=== PATIENT | male | born 1940 | race Caucasian/White ===

== ENCOUNTER 2016-08-10 09:56 | Inpatient (IN) | payer MEDICARE, OTHER ==
[~2016-08-10] VITALS: Ht 172.7 cm; Wt 85.2 kg
[~2016-08-10 09:56] MED LIST: HYDR-3580 PO; IBUP-232 PO
[2016-08-10 10:05] VITALS: BP 154/85; PULSE 65; RESP 16; TEMP 98; O2SAT 96
[2016-08-10] MEDS ORDERED: ASPI81CH37 CHEW (10:24)
[2016-08-10] MEDS ORDERED: BP med PO (10:24)
[2016-08-10] MEDS ORDERED: SIMV5TAB3 PO (10:24)
[2016-08-10] MEDS ORDERED: CLIN1CAP6 PO (10:24)
[2016-08-10] MEDS ORDERED: MUPI2OIN TOPICAL (10:24)
[2016-08-10] MEDS ORDERED: TETANUS/DIPHTHERIA TOXOID ADULT 0.5 ML VIAL IM ONE (10:30)
[2016-08-10] MEDS ORDERED: VANCOMYCIN INJ 1,251 MG in SODIUM CHLORID 0.9% 500 ML INJ 500 ML IV SCH (10:30)
--- NOTE | 2016-08-10 10:31 | PD ---
HPI Chief Complaint: Skin Problem Time Seen by Provider: 10:15 Travel History International Travel<30 days: No Contact w/Intl Traveler<30days: No Traveled to known affect area: No History of Present Illness HPI Patient is a 76-year-old male who presents to emergency room for evaluation of cellulitis to his right upper extremity with failed outpatient treatment. Patient reports that one week ago, he "snagged his right arm on a door hook," reports that he noticed a small tear in the skin at that time, reports that he noticed increased erythema and edema to his arm days after initial injury. Patient reports that he went to the urgent care on Saturday and was started and doxycycline and was given a prescription for mupirocin ointment. Patient reports that he had been compliant with his medications but reports that the redness has progressed up his arm. Patient went to his primary care doctor yesterday, Dr. Dolan, and his antibiotics were changed to clindamycin. Patient reports that he has been taking clindamycin since yesterday, he was told to go to the emergency room if his redness increased and did not improve with his clindamycin. Patient reports that he has noticed increased redness up his arm today, patient here for evaluation of worsening cellulitis. Patient reports no fevers or chills at this time. Patient reports that his tetanus is not up-to-date. PFSH Past Medical History Hx Anticoagulant Therapy: Yes (asa 81mg) Heart Rhythm Problems: Yes Cardiovascular Problems: Yes (htn on meds, 3 vessel bypass) High Cholesterol: Yes Diabetes: No Diminished Hearing: No Hypertension: Yes Respiratory: Yes (copd) Thyroid Disease: Yes Tetanus Vaccination: Unknown Influenza Vaccination: No Past Surgical History Appendectomy: Yes Cardiac Surgery: Yes Coronary Artery Bypass Graft: Yes Tonsillectomy: Yes Social History Alcohol Use: Yes (Occ.) Tobacco Use: No Substance Use: No Allergies-Medications (Allergen,Severity, Reaction): Coded Allergies: Contrast Media (Verified Allergy, Unknown, stings , 08/10/16) Reported Meds & Prescriptions Reported Meds & Active Scripts Active Reported Metoprolol Tartrate 25 Mg Tab 25 Mg PO DAILY Mupirocin Topical (Mupirocin) 2 % Oint 1 Applic TOPICAL TID Clindamycin (Clindamycin HCl) 300 Mg Cap 300 Mg PO Q6H Aspirin Low Dose (Aspirin) 81 Mg Chew 81 Mg CHEW DAILY Simvastatin 5 Mg Tab 10 Mg PO DAILY Review of Systems General / Constitutional: No: Fever Eyes: No: Visual changes HENT: No: Headaches Cardiovascular: No: Chest Pain or Discomfort Respiratory: No: Shortness of Breath Gastrointestinal: No: Abdominal Pain Genitourinary: No: Dysuria Musculoskeletal: No: Pain Skin: Positive Rash, Positive Other (cellulitis to right upper extremity) Neurologic: No: Weakness Psychiatric: No: Depression Endocrine: No: Polydipsia Hematologic/Lymphatic: No: Easy Bruising Physical Exam Narrative GENERAL: No acute distress, nontoxic SKIN: Warm and dry. Patient with increased redness and erythema to his right upper extremity HEAD: Atraumatic. Normocephalic. EYES: No injection or drainage. ENT: No nasal bleeding or discharge. Mucous membranes pink and moist. NECK: Trachea midline. No JVD. CARDIOVASCULAR: Regular rate and rhythm. No murmur appreciated. RESPIRATORY: No accessory muscle use. Clear to auscultation. Breath sounds equal bilaterally. GASTROINTESTINAL: Abdomen soft, non-tender, nondistended. Hepatic and splenic margins not palpable. MUSCULOSKELETAL: No obvious deformities. No clubbing. No cyanosis. Patient with increased redness and erythema to his right upper extremity from his right wrist to his shoulder, erythema and redness is not circumferential, no obvious abscess palpable NEUROLOGICAL: Awake and alert. No obvious cranial nerve deficits. Motor grossly within normal limits. Normal speech. PSYCHIATRIC: Appropriate mood and affect; insight and judgment normal. Data Data Last Documented VS Vital Signs Date Time Temp Pulse Resp B/P Pulse Ox O2 Delivery O2 Flow Rate FiO2 08/10/16 10:05 98.0 65 16 154/85 96 Orders Complete Blood Count With Diff (08/10/16 10:20) Comprehensive Metabolic Panel (08/10/16 10:20) Prothrombin Time / Inr (Pt) (08/10/16 10:20) Act Partial Throm Time (Ptt) (08/10/16 10:20) Blood Culture (08/10/16 10:20) Iv Access Insert/Monitor (08/10/16 10:20) Tetanus/Diphtheria Tox Adult (Tetanus/Di (08/10/16 10:30) Vancomycin Inj (Vancomycin Inj) (08/10/16 11:00) Labs Laboratory Tests Test 08/10/16 10:30 White Blood Count 5.4 TH/MM3 Red Blood Count 5.25 MIL/MM3 Hemoglobin 15.4 GM/DL Hematocrit 48.0 % Mean Corpuscular Volume 91.5 FL Mean Corpuscular Hemoglobin 29.3 PG Mean Corpuscular Hemoglobin 32.1 % Concent Red Cell Distribution Width 14.1 % Platelet Count 220 TH/MM3 Mean Platelet Volume 7.5 FL Neutrophils (%) (Auto) 64.2 % Lymphocytes (%) (Auto) 20.9 % Monocytes (%) (Auto) 9.3 % Eosinophils (%) (Auto) 4.1 % Basophils (%) (Auto) 1.5 % Neutrophils # (Auto) 3.5 TH/MM3 Lymphocytes # (Auto) 1.1 TH/MM3 Monocytes # (Auto) 0.5 TH/MM3 Eosinophils # (Auto) 0.2 TH/MM3 Basophils # (Auto) 0.1 TH/MM3 CBC Comment DIFF FINAL Differential Comment Prothrombin Time 11.4 SEC Prothromb Time International 1.0 RATIO Ratio Activated Partial 27.6 SEC Thromboplast Time Sodium Level 139 MEQ/L Potassium Level 4.3 MEQ/L Chloride Level 102 MEQ/L Carbon Dioxide Level 29.2 MEQ/L Anion Gap 8 MEQ/L Blood Urea Nitrogen 18 MG/DL Creatinine 1.10 MG/DL Estimat Glomerular Filtration 65 ML/MIN Rate Random Glucose 111 MG/DL Calcium Level 8.7 MG/DL Total Bilirubin 0.8 MG/DL Aspartate Amino Transf 15 U/L (AST/SGOT) Alanine Aminotransferase 32 U/L (ALT/SGPT) Alkaline Phosphatase 32 U/L Total Protein 6.8 GM/DL Albumin 3.9 GM/DL [facility] Medical Decision Making Medical Screen Exam Complete: Yes Emergency Medical Condition: Yes Interpretation(s) Vital Signs Date Time Temp Pulse Resp B/P Pulse Ox O2 Delivery O2 Flow Rate FiO2 08/10/16 10:05 98.0 65 16 154/85 96 Differential Diagnosis Cellulitis - failed outpatient treatment Narrative Course Patient is a 76-year-old male who presents to emergency room with complaints of cellulitis which started around 1 week ago after he injured his right arm on a metal door. Patient has been on doxycycline for the past 5 days, reports that symptoms progressed on antibiotics. Patient did follow with his primary care doctor yesterday and was started on clindamycin and was told to go to the emergency room should symptoms progress or worsen and not improve on clindamycin. Patient reports that symptoms are worse today, patient here for evaluation. Vital Signs Date Time Temp Pulse Resp B/P Pulse Ox O2 Delivery O2 Flow Rate FiO2 08/10/16 10:05 98.0 65 16 154/85 96 Patient's vital signs are stable this time, patient with cellulitis to his right upper extremity, patient failed outpatient treatment for his cellulitis. Labs as well as blood cultures ordered. We'll give patient an IV dose of vancomycin. Patient will require admission to the hospital for treatment of cellulitis. Will update patient's tetanus at this time. Patient pcp Dr. Whittaker ( hospitalist) CBC & BMP Diagram 08/10/16 10:30 Physician Communication Physician Communication case reviewed with dr. mcgowan who accepts pt to service Diagnosis Primary Impression: Cellulitis Qualified Code: L03.113 - Cellulitis of right upper extremity Admitting Information Admitting Physician Requests: Admit Neelima Edwards DO Aug 10, 2016 10:31
[2016-08-10 10:51] LABS: AUTOMATED NEUTROPHIL # 3.5 TH/MM3 (1.8-7.7); BASOPHIL # 0.1 TH/MM3 (0-0.2); BASOPHIL % 1.5 % (0.0-2.0); EOSINOPHIL # 0.2 TH/MM3 (0-0.4); EOSINOPHIL % 4.1 % (0.0-4.0); HEMO FLAGS DIFF FINAL; LYMPH % 20.9 % (9.0-44.0); LYMPHOCYTE # 1.1 TH/MM3 (1.0-4.8); MEAN CELL VOLUME 91.5 FL (80.0-100.0); MEAN CORPUSCULAR HEMOGLOBIN 29.3 PG (27.0-34.0); MEAN CORPUSCULAR HGB CONC 32.1 % (32.0-36.0); MONO % 9.3 % (0.0-8.0); NEUT % 64.2 % (16.0-70.0); PLATELET COUNT 220 TH/MM3 (150-450); RED BLOOD COUNT 5.25 MIL/MM3 (4.50-5.90); RED CELL DISTRIBUTION WIDTH 14.1 % (11.6-17.2); WHITE BLOOD COUNT 5.4 TH/MM3 (4.0-11.0)
[2016-08-10 10:58] LABS: CHLORIDE 102 MEQ/L (98-107); POTASSIUM 4.3 MEQ/L (3.5-5.1); SODIUM (NA) 139 MEQ/L (136-145)
[2016-08-10] MEDS ORDERED: METO25TA3 PO (10:59)
[2016-08-10] MEDS ORDERED: VANCOMYCIN INJ 1,250 MG in SODIUM CHLOR 0.9% 250 ML INJ 250 ML IV SCH (11:00)
[2016-08-10 11:03] LABS: ANION GAP 8 MEQ/L (5-15); BICARBONATE 29.2 MEQ/L (21.0-32.0); BLOOD UREA NITROGEN 18 MG/DL (7-18)
[2016-08-10 11:06] LABS: ALT (GPT) 32 U/L (12-78); AST (GOT) 15 U/L (15-37)
[2016-08-10 11:07] LABS: GLOMERULAR FILTRATION RATE 65 ML/MIN (>89)
[2016-08-10 11:08] LABS: TOTAL BILIRUBIN ADULT 0.8 MG/DL (0.2-1.0)
[2016-08-10 11:09] LABS: ALKALINE PHOSPHATASE 32 U/L (45-117); APTT (PATIENT) 27.6 SEC (24.3-30.1); PROTHROMBIN TIME - PATIENT 11.4 SEC (9.8-11.6)
[2016-08-10] MEDS ORDERED: NALOXONE HCL 0.4 MG/ML AMP IV PRN (11:45)
[2016-08-10] MEDS ORDERED: ONDANSETRON HCL 4 MG/2 ML VIAL IVP PRN (11:45)
[2016-08-10] MEDS ORDERED: TEMAZEPAM 15 MG CAP PO PRN (11:45)
[2016-08-10 11:55] VITALS: BP 136/66; PULSE 45; RESP 16; O2SAT 98
[2016-08-10] MEDS: MUPIROCIN 2% OINT 22 GM TUBE TOPICAL SCH ×2 (12:11→18:00)
[2016-08-10] MEDS: HEPARIN SODIUM - SQ 10,000 UNITS/ML VIAL SQ SCH ×2 (12:11→21:59)
[2016-08-10 13:45] VITALS: BP 151/67; PULSE 42; RESP 16; O2SAT 98
[2016-08-10] MEDS: CLINDAMYCIN INJ 600 MG in SODIUM CHLORIDE 0.9% INJ 100 ML IV SCH ×2 (14:00→21:59)
--- NOTE | 2016-08-10 14:06 | HHI.HP ---
HPI Service [facility] Primary Care Physician Jacob Whittaker MD Admission Diagnosis Right upper extremity Cellulitis - failed outpatient treatment Diagnoses: Travel History International Travel<30 Days: No Contact w/Intl Traveler <30 Da: No Traveled to Known Affected Are: No History of Present Illness This is a very pleasant 76-year-old male patient of Dr. Whittaker. He was brought in to the emergency department at [facility] and was seen by the undersigned in room 9. One week ago he had his right forearm hitting doorknob. He sustained a skin tear over the outer aspect of his right forearm. This became red and therefore he went to urgent care where he received a prescription for doxycycline. Also he received a prescription for mupirocin. He used the above without much improvement. He saw his primary physician yesterday and was given a prescription for clindamycin. Again there was no improvement subsequently and the redness has not spread to the whole of the dorsal aspect of his right forearm and up his right upper arm. No fever chills or diaphoresis. He is alert and oriented. He has some pain on the pain is mild. He does have some minor swelling in the arm. He has no problems with movement and sensation in his right hand. He is right handed. He was seen in presence of his . Review of Systems Other As above. Itching right upper extremity, 10 systems reviewed and otherwise negative Past Family Social History Past Medical History Hypothyroidism Coronary disease Hyperlipidemia Overweight Hypertension COPD Past Surgical History 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 Tonsillectomy Appendectomy Reported Medications Reported Meds & Active Scripts Active Reported Metoprolol Tartrate 25 Mg Tab 25 Mg PO DAILY Mupirocin Topical (Mupirocin) 2 % Oint 1 Applic TOPICAL TID Clindamycin (Clindamycin HCl) 300 Mg Cap 300 Mg PO Q6H Aspirin Low Dose (Aspirin) 81 Mg Chew 81 Mg CHEW DAILY Simvastatin 5 Mg Tab 10 Mg PO DAILY Allergies: Coded Allergies: Contrast Media (Verified Allergy, Unknown, stings , 08/10/16) Family History Reviewed with noncontributory Social History No current smoking, no excessive alcohol, no illicit drug use Physical Exam Vital Signs Vital Signs Date Time Temp Pulse Resp B/P Pulse Ox O2 Delivery O2 Flow Rate FiO2 08/10/16 13:45 42 16 151/67 98 Room Air 08/10/16 11:55 45 16 136/66 98 Room Air 08/10/16 10:05 98.0 65 16 154/85 96 Physical Exam GENERAL: This is a well-nourished, well-developed patient, in no apparent distress. SKIN: No rashes, ecchymoses or lesions. Cool and dry. HEAD: Atraumatic. Normocephalic. No temporal or scalp tenderness. EYES: Pupils equal round and reactive. Extraocular motions intact. No scleral icterus. No injection or drainage. ENT: Nose without bleeding, purulent drainage or septal hematoma. Throat without erythema, tonsillar hypertrophy or exudate. Uvula midline. Airway patent. NECK: Trachea midline. No JVD or lymphadenopathy. Supple, nontender, no meningeal signs. CARDIOVASCULAR: Regular rate and rhythm without murmurs, gallops, or rubs. RESPIRATORY: Clear to auscultation. Breath sounds equal bilaterally. No wheezes , rales, or rhonchi. GASTROINTESTINAL: Abdomen soft, non-tender, nondistended. No hepato-splenomegaly , or palpable masses. No guarding. MUSCULOSKELETAL: Skin tear of the lateral aspect of the right forearm erythema extending from the area proximal to the right wrist all the way to the mid upper arm with sharp edges. He has good radial pulse. He has normal sensation and normal motor power in his right hand NEUROLOGICAL: Awake and alert. Cranial nerves II through XII intact. Normal speech. Laboratory Laboratory Tests Test 08/10/16 10:30 White Blood Count 5.4 Red Blood Count 5.25 Hemoglobin 15.4 Hematocrit 48.0 Mean Corpuscular Volume 91.5 Mean Corpuscular Hemoglobin 29.3 Mean Corpuscular Hemoglobin 32.1 Concent Red Cell Distribution Width 14.1 Platelet Count 220 Mean Platelet Volume 7.5 Neutrophils (%) (Auto) 64.2 Lymphocytes (%) (Auto) 20.9 Monocytes (%) (Auto) 9.3 Eosinophils (%) (Auto) 4.1 Basophils (%) (Auto) 1.5 Neutrophils # (Auto) 3.5 Lymphocytes # (Auto) 1.1 Monocytes # (Auto) 0.5 Eosinophils # (Auto) 0.2 Basophils # (Auto) 0.1 CBC Comment DIFF FINAL Differential Comment Prothrombin Time 11.4 Prothromb Time International 1.0 Ratio Activated Partial 27.6 Thromboplast Time Sodium Level 139 Potassium Level 4.3 Chloride Level 102 Carbon Dioxide Level 29.2 Anion Gap 8 Blood Urea Nitrogen 18 Creatinine 1.10 Estimat Glomerular Filtration 65 Rate Random Glucose 111 Calcium Level 8.7 Total Bilirubin 0.8 Aspartate Amino Transf 15 (AST/SGOT) Alanine Aminotransferase 32 (ALT/SGPT) Alkaline Phosphatase 32 Total Protein 6.8 Albumin 3.9 Date/Time Procedure Status Source Growth 08/10/16 10:35 Aerobic Blood Culture Received Blood Peripheral Pending 08/10/16 10:35 Anaerobic Blood Culture Received Blood Peripheral Pending Result Diagram: 08/10/16 1030 08/10/16 1030 Assessment and Plan Assessment and Plan Assessment Right upper extremity skin tear Right upper extremity cellulitis, resistant to outpatient therapy Pruritus secondary to the above History of coronary disease, COPD, hypothyroidism Management Elevate right upper extremity Vancomycin intravenously Clindamycin intravenously Consult infectious disease specialist As needed Benadryl for his itching Continue home medications DVT prophylaxis Discussed with patient and his Discussed with nurse 45 minutes Jaida Mattson MD Aug 10, 2016 14:06
[2016-08-10] MEDS: diphenhydrAMINE HCL 25 MG CAP PO PRN ×2 (14:18→21:58)
[2016-08-10 15:15] VITALS: BP 163/76; PULSE 45; RESP 16; O2SAT 99
[2016-08-10 20:00] VITALS: BP 133/72; PULSE 48; RESP 16; TEMP 98.3; O2SAT 95
[2016-08-10] MEDS: SODIUM CHLORIDE 0.9% FLUSH 5 ML FLUSH FLUSH SCH (21:58)
[2016-08-11] MEDS: VANCOMYCIN INJ 1,000 MG in SODIUM CHLOR 0.9% 250 ML INJ 250 ML IV SCH ×3 (00:19→23:25)
[2016-08-11 00:37] VITALS: BP 159/86; PULSE 68; RESP 18; TEMP 98.5; O2SAT 94
[2016-08-11] MEDS: CLINDAMYCIN INJ 600 MG in SODIUM CHLORIDE 0.9% INJ 100 ML IV SCH ×4 (03:10→21:33)
[2016-08-11 04:00] VITALS: BP 159/86; PULSE 68; RESP 18; TEMP 98.5; O2SAT 94
[2016-08-11 08:00] VITALS: BP 145/80; PULSE 51; RESP 16; TEMP 98; O2SAT 96
[2016-08-11] MEDS ORDERED: METOPROLOL TARTRATE 25 MG TAB PO SCH (09:00)
[2016-08-11] MEDS: MUPIROCIN 2% OINT 22 GM TUBE TOPICAL SCH ×3 (09:00→17:36)
[2016-08-11] MEDS: ASPIRIN 81 MG CHEW TAB CHEW SCH (09:08)
[2016-08-11] MEDS: PRAVASTATIN SOD 20 MG TAB PO SCH (09:08)
[2016-08-11] MEDS: diphenhydrAMINE HCL 25 MG CAP PO PRN ×2 (09:09→21:41)
[2016-08-11] MEDS: HEPARIN SODIUM - SQ 10,000 UNITS/ML VIAL SQ SCH ×2 (09:09→21:34)
--- NOTE | 2016-08-11 09:12 | HHI.PR ---
Subjective Remarks 76yr old pleasant male seen and examined today. bedside. C/o itching in right forearm. No fever/CP/SOB. Objective Objective Results - Vital Signs Date Time Temp Pulse Resp B/P Pulse Ox O2 Delivery O2 Flow Rate FiO2 08/11/16 08:00 98.0 51 16 145/80 96 08/11/16 04:00 98.5 68 18 159/86 94 08/11/16 00:37 98.5 68 18 159/86 94 08/10/16 20:00 98.3 48 16 133/72 95 08/10/16 15:15 45 16 163/76 99 Room Air 08/10/16 13:45 42 16 151/67 98 Room Air 08/10/16 11:55 45 16 136/66 98 Room Air 08/10/16 10:05 98.0 65 16 154/85 96 I/O 08/10/16 08/10/16 08/10/16 08/11/16 08/11/16 08/11/16 07:00 15:00 23:00 07:00 15:00 23:00 Intake Total 250 ml 100 ml 550 ml Balance 250 ml 100 ml 550 ml Intake IV Total 250 ml 100 ml 550 ml Result Diagram: 08/10/16 1030 08/10/16 1030 Other Results Laboratory Tests Test 08/10/16 10:30 White Blood Count 5.4 Red Blood Count 5.25 Hemoglobin 15.4 Hematocrit 48.0 Mean Corpuscular Volume 91.5 Mean Corpuscular Hemoglobin 29.3 Mean Corpuscular Hemoglobin 32.1 Concent Red Cell Distribution Width 14.1 Platelet Count 220 Mean Platelet Volume 7.5 Neutrophils (%) (Auto) 64.2 Lymphocytes (%) (Auto) 20.9 Monocytes (%) (Auto) 9.3 Eosinophils (%) (Auto) 4.1 Basophils (%) (Auto) 1.5 Neutrophils # (Auto) 3.5 Lymphocytes # (Auto) 1.1 Monocytes # (Auto) 0.5 Eosinophils # (Auto) 0.2 Basophils # (Auto) 0.1 CBC Comment DIFF FINAL Differential Comment Prothrombin Time 11.4 Prothromb Time International 1.0 Ratio Activated Partial 27.6 Thromboplast Time Sodium Level 139 Potassium Level 4.3 Chloride Level 102 Carbon Dioxide Level 29.2 Anion Gap 8 Blood Urea Nitrogen 18 Creatinine 1.10 Estimat Glomerular Filtration 65 Rate Random Glucose 111 Calcium Level 8.7 Total Bilirubin 0.8 Aspartate Amino Transf 15 (AST/SGOT) Alanine Aminotransferase 32 (ALT/SGPT) Alkaline Phosphatase 32 Total Protein 6.8 Albumin 3.9 Date/Time Procedure Status Source Growth 08/11/16 05:30 MRSA Surveillance Culture Received Other Pending 08/10/16 10:35 Aerobic Blood Culture Received Blood Peripheral Pending 08/10/16 10:35 Anaerobic Blood Culture Received Blood Peripheral Pending ROS General: No: Fatigue, Weakness, Other HEENT: No: Sore Throat, Dysphagia, Other Cardiac: No: Chest Pain, Edema, Palpitations, Other Pulmonary: No: Cough, SOB, Wheezing, Other GI: No: Abdominal Pain, BM, Diarrhea, N/V, 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 He is alert and awake. HEAD: Normocephalic without any lesion or mass noted. . EYES: Perrla, Normal eye movement, no icterus. OROPHARYNGEAL: Oropharynx without erythema or edema. MOUTH/THROAT: Moist obie mucosa. NECK: Supple. CARDIAC: Regular rhythm, regular rate, S1 and S2 are heard. LUNGS: Clear to auscultation bilaterally. ABDOMEN: Soft, nontender, no organomegaly or masses. Bowel sounds are heard in all four quadrants. No rebound. No guarding. EXTREMITIES: Skin tear of the lateral aspect of the right forearm erythema extending from the area proximal to the right wrist all the way to the mid upper arm with sharp edges. He has good radial pulse. He has normal sensation and normal motor power in his right hand NEUROLOGICAL: No focal deficits. SKIN:Warm and moist PSYCH: Mood and affect appropriate A/P Assessment and Plan Assessment Right upper extremity cellulitis, resistant to outpatient therapy Right upper extremity laceration/wound Pruritus secondary to the above History of coronary disease, COPD, hypothyroidism Management Vancomycin intravenously Clindamycin intravenously Keep the right forearm elevated. Consulted infectious disease specialist Benadryl prn for itching. Add triamcinolone cream for itching/rash right forearm. Continue home medications DVT prophylaxis Discussed with patient and his Discussed with nurse AM labs. 35min. Milton Gee MD Aug 11, 2016 09:12
[2016-08-11] MEDS: SODIUM CHLORIDE 0.9% FLUSH 5 ML FLUSH FLUSH SCH ×2 (09:17→21:33)
[2016-08-11] MEDS ORDERED: PNEUMOCOCCAL POLYVALENT INJ 25 MCG/0.5 ML SYR IM ONE (10:00)
[2016-08-11 11:12] LABS: AUTOMATED NEUTROPHIL # 3.4 TH/MM3 (1.8-7.7); BASOPHIL # 0.1 TH/MM3 (0-0.2); BASOPHIL % 1.2 % (0.0-2.0); EOSINOPHIL # 0.3 TH/MM3 (0-0.4); EOSINOPHIL % 4.6 % (0.0-4.0); HEMATOCRIT 42.5 % (39.0-51.0); HEMO FLAGS DIFF FINAL; LYMPH % 22.7 % (9.0-44.0); LYMPHOCYTE # 1.2 TH/MM3 (1.0-4.8); MEAN CELL VOLUME 90.6 FL (80.0-100.0); MEAN CORPUSCULAR HEMOGLOBIN 29.6 PG (27.0-34.0); MEAN CORPUSCULAR HGB CONC 32.7 % (32.0-36.0); MONO % 9.1 % (0.0-8.0); NEUT % 62.4 % (16.0-70.0); PLATELET COUNT 194 TH/MM3 (150-450); RED CELL DISTRIBUTION WIDTH 14.4 % (11.6-17.2); WHITE BLOOD COUNT 5.5 TH/MM3 (4.0-11.0)
[2016-08-11 11:17] LABS: POTASSIUM 4.1 MEQ/L (3.5-5.1)
[2016-08-11 11:20] LABS: BICARBONATE 24.5 MEQ/L (21.0-32.0)
[2016-08-11 12:00] VITALS: BP 119/67; PULSE 40; RESP 16; TEMP 97.7; O2SAT 98
[2016-08-11 16:00] VITALS: BP 134/79; PULSE 51; RESP 16; TEMP 97.2; O2SAT 94
[2016-08-11] MEDS: TRIAMCINOLONE ACETONIDE 0.1% CREAM 15 GM TOPICAL PRN (17:33)
[2016-08-11 20:39] VITALS: BP 143/72; PULSE 49; RESP 18; TEMP 96.9; O2SAT 95
[2016-08-12 01:00] VITALS: BP 142/76; PULSE 51; RESP 12; TEMP 97.8; O2SAT 97
[2016-08-12 04:02] VITALS: BP 139/81; PULSE 49; RESP 14; TEMP 97; O2SAT 98
[2016-08-12] MEDS: CLINDAMYCIN INJ 600 MG in SODIUM CHLORIDE 0.9% INJ 100 ML IV SCH ×4 (04:13→20:31)
[2016-08-12 07:52] LABS: AUTOMATED NEUTROPHIL # 2.8 TH/MM3 (1.8-7.7); BASOPHIL % 0.8 % (0.0-2.0); EOSINOPHIL # 0.2 TH/MM3 (0-0.4); EOSINOPHIL % 5.1 % (0.0-4.0); HEMATOCRIT 40.8 % (39.0-51.0); HEMO FLAGS DIFF FINAL; LYMPH % 27.2 % (9.0-44.0); LYMPHOCYTE # 1.3 TH/MM3 (1.0-4.8); MEAN CELL VOLUME 89.9 FL (80.0-100.0); MEAN CORPUSCULAR HEMOGLOBIN 29.4 PG (27.0-34.0); MEAN CORPUSCULAR HGB CONC 32.7 % (32.0-36.0); MONO % 9.9 % (0.0-8.0); PLATELET COUNT 179 TH/MM3 (150-450); RED BLOOD COUNT 4.54 MIL/MM3 (4.50-5.90); RED CELL DISTRIBUTION WIDTH 14.2 % (11.6-17.2); WHITE BLOOD COUNT 4.8 TH/MM3 (4.0-11.0)
[2016-08-12 08:00] VITALS: BP 133/68; PULSE 52; RESP 20; TEMP 97.4; O2SAT 95
[2016-08-12 08:05] LABS: BICARBONATE 24.8 MEQ/L (21.0-32.0)
--- NOTE | 2016-08-12 08:13 | HHI.PR ---
Subjective Remarks 76yr old pleasant male seen and examined today. bedside. Itching in right forearm better with triamcinolone/benadryl. No fever/CP/SOB. Objective Objective Results - Vital Signs Date Time Temp Pulse Resp B/P Pulse Ox O2 Delivery O2 Flow Rate FiO2 08/12/16 04:02 97.0 49 14 139/81 98 08/12/16 01:00 97.8 51 12 142/76 97 08/11/16 20:39 96.9 49 18 143/72 95 08/11/16 16:00 97.2 51 16 134/79 94 08/11/16 12:00 97.7 40 16 119/67 98 I/O 08/11/16 08/11/16 08/11/16 08/12/16 08/12/16 08/12/16 07:00 15:00 23:00 07:00 15:00 23:00 Intake Total 550 ml 600 ml Balance 550 ml 600 ml Intake Oral 600 ml IV Total 550 ml # Voids 2 2 3 Result Diagram: 08/12/16 0640 08/12/16 0640 Other Results Laboratory Tests Test 08/11/16 08/12/16 10:43 06:40 White Blood Count 5.5 4.8 Red Blood Count 4.70 4.54 Hemoglobin 13.9 13.3 Hematocrit 42.5 40.8 Mean Corpuscular Volume 90.6 89.9 Mean Corpuscular Hemoglobin 29.6 29.4 Mean Corpuscular Hemoglobin 32.7 32.7 Concent Red Cell Distribution Width 14.4 14.2 Platelet Count 194 179 Mean Platelet Volume 7.4 7.8 Neutrophils (%) (Auto) 62.4 57.0 Lymphocytes (%) (Auto) 22.7 27.2 Monocytes (%) (Auto) 9.1 9.9 Eosinophils (%) (Auto) 4.6 5.1 Basophils (%) (Auto) 1.2 0.8 Neutrophils # (Auto) 3.4 2.8 Lymphocytes # (Auto) 1.2 1.3 Monocytes # (Auto) 0.5 0.5 Eosinophils # (Auto) 0.3 0.2 Basophils # (Auto) 0.1 0.0 CBC Comment DIFF FINAL DIFF FINAL Differential Comment Sodium Level 140 142 Potassium Level 4.1 4.0 Chloride Level 106 108 Carbon Dioxide Level 24.5 24.8 Anion Gap 10 9 Blood Urea Nitrogen 13 12 Creatinine 0.89 0.84 Estimat Glomerular Filtration 83 89 Rate Random Glucose 130 96 Calcium Level 8.3 8.4 Date/Time Procedure Status Source Growth 08/11/16 05:30 MRSA Surveillance Culture Received Other Pending 08/10/16 10:35 Aerobic Blood Culture - Preliminary Resulted Blood Peripheral NO GROWTH IN 1 DAY 08/10/16 10:35 Anaerobic Blood Culture - Preliminary Resulted Blood Peripheral NO GROWTH IN 1 DAY ROS General: No: Fatigue, Weakness, Other HEENT: No: Sore Throat, Dysphagia, Other Cardiac: No: Chest Pain, Edema, Palpitations, Other Pulmonary: No: Cough, SOB, Wheezing, Other GI: No: Abdominal Pain, BM, Diarrhea, N/V, 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 He is alert and awake. HEAD: Normocephalic without any lesion or mass noted. . EYES: Perrla, Normal eye movement, no icterus. OROPHARYNGEAL: Oropharynx without erythema or edema. MOUTH/THROAT: Moist obie mucosa. NECK: Supple. CARDIAC: Regular rhythm, regular rate, S1 and S2 are heard. LUNGS: Clear to auscultation bilaterally. ABDOMEN: Soft, nontender, no organomegaly or masses. Bowel sounds are heard in all four quadrants. No rebound. No guarding. EXTREMITIES: Skin tear of the lateral aspect of the right forearm+. Decreased erythema/swelling. He has good radial pulse. NEUROLOGICAL: No focal deficits. SKIN:Warm and moist PSYCH: Mood and affect appropriate A/P Assessment and Plan Assessment Right upper extremity cellulitis, resistant to outpatient therapy Right upper extremity laceration/wound Pruritus secondary to the above History of coronary disease, COPD, hypothyroidism Management Vancomycin intravenously Clindamycin intravenously Keep the right forearm elevated. Consulted infectious disease specialist Benadryl/triamcinolone cream prn for itching. MRSA surveillance pending. Blood cultures neg so far. Discussed with patient and his . Continue home medications DVT prophylaxis Discussed with nurse 35min. Milton Gee MD Aug 12, 2016 08:13
[2016-08-12] MEDS: PRAVASTATIN SOD 20 MG TAB PO SCH (08:27)
[2016-08-12] MEDS: HEPARIN SODIUM - SQ 10,000 UNITS/ML VIAL SQ SCH ×2 (08:28→20:31)
[2016-08-12] MEDS: ASPIRIN 81 MG CHEW TAB CHEW SCH (08:28)
[2016-08-12] MEDS: MUPIROCIN 2% OINT 22 GM TUBE TOPICAL SCH ×3 (08:28→17:14)
[2016-08-12] MEDS: SODIUM CHLORIDE 0.9% FLUSH 5 ML FLUSH FLUSH SCH ×2 (08:29→20:31)
[2016-08-12] MEDS: VANCOMYCIN INJ 1,000 MG in SODIUM CHLOR 0.9% 250 ML INJ 250 ML IV SCH ×2 (10:17→22:10)
[2016-08-12 12:00] VITALS: BP 146/84; PULSE 55; RESP 20; TEMP 98.4; O2SAT 96
[2016-08-12 16:00] VITALS: BP 117/69; PULSE 52; RESP 20; TEMP 96.5; O2SAT 97
[2016-08-12 20:00] VITALS: BP 141/88; PULSE 54; RESP 18; TEMP 97.2; O2SAT 96
[2016-08-13] VITALS: BP 144/79; PULSE 68; RESP 18; TEMP 97.1; O2SAT 97
[2016-08-13] MEDS: CLINDAMYCIN INJ 600 MG in SODIUM CHLORIDE 0.9% INJ 100 ML IV SCH ×4 (01:44→20:50)
[2016-08-13] MEDS: diphenhydrAMINE HCL 25 MG CAP PO PRN ×3 (01:48→20:49)
[2016-08-13 08:20] VITALS: BP 135/88; PULSE 79; RESP 18; TEMP 96.1; O2SAT 95
[2016-08-13] MEDS: PRAVASTATIN SOD 20 MG TAB PO SCH (08:47)
[2016-08-13] MEDS: ASPIRIN 81 MG CHEW TAB CHEW SCH (08:47)
[2016-08-13] MEDS: HEPARIN SODIUM - SQ 10,000 UNITS/ML VIAL SQ SCH ×2 (08:48→20:50)
[2016-08-13] MEDS: MUPIROCIN 2% OINT 22 GM TUBE TOPICAL SCH ×3 (08:49→20:47)
[2016-08-13] MEDS: SODIUM CHLORIDE 0.9% FLUSH 5 ML FLUSH FLUSH SCH ×2 (08:49→20:50)
--- NOTE | 2016-08-13 09:39 | HHI.PR ---
Subjective History of Present Illness pt is seen & examined chart reviewed Feels better R arm swelling is improving redness is much better less painful/ more itchy No N/v No CP or SOB NO fever or chills offers no other c/o is at bedside Vitals/Results Intake & Output 08/12/16 08/12/16 08/13/16 15:00 23:00 07:00 Intake Total 630 ml 350 ml 240 ml Balance 630 ml 350 ml 240 ml Intake Oral 630 ml 240 ml IV Total 350 ml # Voids 3 3 # Bowel Movements 0 Vital Signs Vital Signs Date Time Temp Pulse Resp B/P Pulse Ox O2 Delivery O2 Flow Rate FiO2 08/13/16 00:00 97.1 68 18 144/79 97 08/12/16 20:00 97.2 54 18 141/88 96 08/12/16 16:00 96.5 52 20 117/69 97 08/12/16 12:00 98.4 55 20 146/84 96 CBC/BMP: 08/12/16 0640 08/12/16 0640 Physical Exam General General Appearance: No Acute Distress, Comfortable Eyes Eye Exam: Pupils Equal, Sclera White Ears & Nose Ears & Nose Exam: Nasal Mucosa [place] Neck Neck Exam: Neck Supple, Trachea Midline Pulmonary Resp Exam: Clear Bilaterally, Breath Sounds Equal Cardiology CV Exam: Regular, Normal Sinus Rhythm Gastrointestinal/Abdomen GI Exam: Soft, Non-Tender, Bowel Sounds Present Integumentary Skin Remarks swollen Right Forearm, faint redness , ulceration w scab formation , no drainage , slight warmth Neurologic Neuro Exam: Alert, Awake, Oriented, Speech Clear, Moving All Extremities Psychiatric Psych Exam: Appropriate Responses VTE Prophylaxis VTE Prophylaxis Meds: Heparin Assessment/Plan Assessment/Plan Assessment Right upper extremity cellulitis, FAILED outpatient therapy Right upper extremity laceration/wound Pruritus secondary to the above History of coronary disease, COPD, hypothyroidism Management CONT IV Vancomycin & Clindamycin fro another 24 hrs Keep the right forearm elevated. Benadryl/triamcinolone cream prn for itching. No MRSA isolated . Blood cultures neg so far. analgesic prn cont statin ASA Pepcid Continue home medications DVT prophylaxis Discussed with patient and his at bedside in detail ss for d/c planning/possible d/c home in am on po med will f/u Lesly Solorio MD Aug 13, 2016 09:39
[2016-08-13] MEDS: VANCOMYCIN INJ 1,000 MG in SODIUM CHLOR 0.9% 250 ML INJ 250 ML IV SCH ×2 (11:18→22:38)
[2016-08-13 12:00] VITALS: BP 132/78; PULSE 66; RESP 18; TEMP 97.4; O2SAT 98
[2016-08-13 20:00] VITALS: BP 142/82; PULSE 71; RESP 20; TEMP 97.8; O2SAT 95
[2016-08-13] MEDS: FAMOTIDINE 20 MG TAB PO SCH (20:50)
[2016-08-13] MEDS: SODIUM CHLORIDE 0.9% FLUSH 5 ML FLUSH FLUSH PRN (22:38)
[2016-08-14] VITALS: BP 143/81; PULSE 57; RESP 18; TEMP 96.8; O2SAT 95
[2016-08-14] MEDS: CLINDAMYCIN INJ 600 MG in SODIUM CHLORIDE 0.9% INJ 100 ML IV SCH ×3 (02:14→13:13)
[2016-08-14] MEDS: SODIUM CHLORIDE 0.9% FLUSH 5 ML FLUSH FLUSH PRN (02:14)
[2016-08-14 08:00] VITALS: BP 145/77; PULSE 70; RESP 20; TEMP 97.4; O2SAT 95
[2016-08-14] MEDS: SODIUM CHLORIDE 0.9% FLUSH 5 ML FLUSH FLUSH SCH ×2 (10:05→21:00)
[2016-08-14] MEDS: PRAVASTATIN SOD 20 MG TAB PO SCH (10:05)
[2016-08-14] MEDS: ASPIRIN 81 MG CHEW TAB CHEW SCH (10:05)
[2016-08-14] MEDS: HEPARIN SODIUM - SQ 10,000 UNITS/ML VIAL SQ SCH ×2 (10:05→22:15)
[2016-08-14] MEDS: TRIAMCINOLONE ACETONIDE 0.1% CREAM 15 GM TOPICAL PRN ×2 (10:06→10:12)
[2016-08-14] MEDS: diphenhydrAMINE HCL 25 MG CAP PO PRN ×2 (10:11→22:14)
[2016-08-14] MEDS: MUPIROCIN 2% OINT 22 GM TUBE TOPICAL SCH ×3 (10:12→18:08)
[2016-08-14] MEDS: VANCOMYCIN INJ 1,000 MG in SODIUM CHLOR 0.9% 250 ML INJ 250 ML IV SCH (11:10)
[2016-08-14 12:00] VITALS: BP 134/75; PULSE 65; RESP 18; TEMP 97.8; O2SAT 96
[2016-08-14 16:00] VITALS: BP 177/68; PULSE 59; RESP 20; TEMP 97.8; O2SAT 98
--- NOTE | 2016-08-14 16:54 | HHI.PR ---
Subjective Interval History Alert, oriented, slow improvement in the right upper extremity, still some redness/edema/ itching Review of Systems Constitutional Constitutional Remarks As above, 10 systems reviewed otherwise negative Vitals/Results Intake & Output 08/13/16 08/13/16 08/14/16 15:00 23:00 07:00 Intake Total 2 ml 808 ml 180 ml Output Total 0 ml Balance 2 ml 808 ml 180 ml Intake Oral 400 ml 180 ml IV Total 2 ml 408 ml Output Stool Total 0 ml # Voids 1 2 1 # Bowel Movements 1 Vital Signs Vital Signs Date Time Temp Pulse Resp B/P Pulse Ox O2 Delivery O2 Flow Rate FiO2 08/14/16 12:00 97.8 65 18 134/75 96 08/14/16 08:00 97.4 70 20 145/77 95 08/14/16 00:00 96.8 57 18 143/81 95 08/13/16 20:00 97.8 71 20 142/82 95 CBC/BMP: 08/12/16 0640 08/12/16 0640 Physical Exam General General Appearance: No Acute Distress, Comfortable Eyes Eye Exam: Pupils Equal, Sclera White Ears & Nose Ears & Nose Exam: Nasal Mucosa [place] Neck Neck Exam: Neck Supple, Trachea Midline Pulmonary Resp Exam: Clear Bilaterally, Breath Sounds Equal Cardiology CV Exam: Regular, Normal Sinus Rhythm Gastrointestinal/Abdomen GI Exam: Soft, Non-Tender, Bowel Sounds Present Musculoskeletal MS Exam: Normal Tone MS Remarks Mild redness, edema, very small healing skin tear over the dorsum of the right forearm Integumentary Skin Exam: Warm, Dry Neurologic Neuro Exam: Alert, Awake, Oriented, Speech Clear, Moving All Extremities Psychiatric Psych Exam: Appropriate Responses VTE Prophylaxis VTE Prophylaxis Meds: Heparin Assessment/Plan Assessment/Plan Assessment Right upper extremity cellulitis, FAILED outpatient therapy, improving Right upper extremity laceration/wound, improving Pruritus secondary to the above, better with current treatment History of coronary disease, COPD, hypothyroidism Management Switch antibiotics to orally Keep the right forearm elevated. Benadryl/triamcinolone cream prn for itching. Possible discharge tomorrow analgesic prn cont statin ASA Pepcid Continue home medications DVT prophylaxis Discussed with patient in detail for d/c planning/ Jaida Mattson MD Aug 14, 2016 16:54
[2016-08-14 20:00] VITALS: BP 142/73; PULSE 70; RESP 18; TEMP 96.6; O2SAT 97
[2016-08-14] MEDS: FAMOTIDINE 20 MG TAB PO SCH (22:15)
[2016-08-14] MEDS: DOXYCYCLINE HYCLATE 100 MG TAB PO SCH (22:15)
[2016-08-14] MEDS: CEFUROXIME AXETIL 500 MG TAB PO SCH (22:15)
[2016-08-15] VITALS: BP 110/65; PULSE 75; RESP 18; TEMP 97.2; O2SAT 99
[2016-08-15 08:00] VITALS: BP 145/99; PULSE 84; RESP 18; TEMP 97.8; O2SAT 94
[2016-08-15] MEDS: HEPARIN SODIUM - SQ 10,000 UNITS/ML VIAL SQ SCH (08:55)
[2016-08-15] MEDS: CEFUROXIME AXETIL 500 MG TAB PO SCH (08:55)
[2016-08-15] MEDS: ASPIRIN 81 MG CHEW TAB CHEW SCH (08:55)
[2016-08-15] MEDS: PRAVASTATIN SOD 20 MG TAB PO SCH (08:55)
[2016-08-15] MEDS: DOXYCYCLINE HYCLATE 100 MG TAB PO SCH (08:55)
[2016-08-15] MEDS: MUPIROCIN 2% OINT 22 GM TUBE TOPICAL SCH ×2 (08:56→12:17)
[2016-08-15] MEDS: SODIUM CHLORIDE 0.9% FLUSH 5 ML FLUSH FLUSH SCH (08:56)
[2016-08-15 12:00] VITALS: BP 122/79; PULSE 63; RESP 18; TEMP 96; O2SAT 96
--- NOTE | 2016-08-15 15:34 | HHI.PR ---
Subjective History of Present Illness Feels well R arm swelling is much better redness is much better less painful/ more itchy No N/v No CP or SOB NO fever or chills offers no other c/o is at bedside again Vitals/Results Intake & Output 08/14/16 08/14/16 08/15/16 15:00 23:00 07:00 Intake Total 825 ml 68 ml 80 ml Balance 825 ml 68 ml 80 ml Intake Oral 825 ml 68 ml 80 ml # Voids 5 3 1 # Bowel Movements 1 0 0 Vital Signs Vital Signs Date Time Temp Pulse Resp B/P Pulse Ox O2 Delivery O2 Flow Rate FiO2 08/15/16 12:00 96.0 63 18 122/79 96 08/15/16 08:00 97.8 84 18 145/99 94 08/15/16 00:00 97.2 75 18 110/65 99 08/14/16 20:00 96.6 70 18 142/73 97 08/14/16 16:00 97.8 59 20 177/68 98 CBC/BMP: 08/12/16 0640 08/12/16 0640 Physical Exam General General Appearance: No Acute Distress, Comfortable Eyes Eye Exam: Pupils Equal, Sclera White Ears & Nose Ears & Nose Exam: Nasal Mucosa [place] Neck Neck Exam: Neck Supple, Trachea Midline Pulmonary Resp Exam: Clear Bilaterally, Breath Sounds Equal Cardiology CV Exam: Regular, Normal Sinus Rhythm Gastrointestinal/Abdomen GI Exam: Soft, Non-Tender, Bowel Sounds Present Musculoskeletal MS Exam: Normal Tone Integumentary Skin Exam: Warm, Dry Skin Remarks min swelling Right Forearm, faint redness , ulceration w scab formation , no drainage , slight warmth Neurologic Neuro Exam: Alert, Awake, Oriented, Speech Clear, Moving All Extremities Psychiatric Psych Exam: Appropriate Responses VTE Prophylaxis VTE Prophylaxis Meds: Heparin Assessment/Plan Assessment/Plan Assessment Right upper extremity cellulitis, FAILED outpatient therapy, improving Right upper extremity laceration/wound, improving Pruritus secondary to the above, better with current treatment History of coronary disease, COPD, hypothyroidism Management po ceftin/doxy x 5 more day Keep the right forearm elevated. Benadryl/triamcinolone cream prn for itching. analgesic prn cont statin ASA Pepcid Continue home medications DVT prophylaxis medically stable for d/c d/c home today see orders see MRS Discussed with patient in detail Lesly Solorio MD Aug 15, 2016 15:34 Lesly Solorio MD Aug 15, 2016 15:34
[2016-08-15] MEDS ORDERED: DOXY100T PO (15:37)
[2016-08-15] MEDS ORDERED: CEFT500T3 PO (15:37)
[2016-08-15 15:55] VITALS: BP 136/84; PULSE 73; RESP 18; TEMP 96; O2SAT 98
--- NOTE | 2016-08-15 18:21 | HHI.DS ---
Discharge Summary Admission Date Aug 11, 2016 at 15:15 Discharge Date: Aug 15, 2016 Admitting Diagnosis Right upper extremity Cellulitis - failed outpatient treatment Brief History This was a very pleasant 76-year-old male patient of Dr. Whittaker. He was brought in to the emergency department at [facility] and was seen by the undersigned in room 9. One week ago before admission he had his right forearm hitting doorknob. He sustained a skin tear over the outer aspect of his right forearm. This became red and therefore he went to urgent care where he received a prescription for doxycycline. Also he received a prescription for mupirocin. He used the above without much improvement. He saw his primary physician day before admission and was given a prescription for clindamycin. Again there was no improvement subsequently and the redness had not spread to the whole of the dorsal aspect of his right forearm and up his right upper arm. No fever chills or diaphoresis. He was alert and oriented. He had some pain on the pain is mild. He did have some minor swelling in the arm. He had no problems with movement and sensation in his right hand. He was right handed. He was seen in presence of his . CBC/BMP: 08/12/16 0640 08/12/16 0640 PE at Discharge General General Appearance: No Acute Distress, Comfortable Eyes Eye Exam: Pupils Equal, Sclera White Ears & Nose Ears & Nose Exam: Nasal Mucosa [place] Neck Neck Exam: Neck Supple, Trachea Midline Pulmonary Resp Exam: Clear Bilaterally, Breath Sounds Equal Cardiology CV Exam: Regular, Normal Sinus Rhythm Gastrointestinal/Abdomen GI Exam: Soft, Non-Tender, Bowel Sounds Present Musculoskeletal MS Exam: Normal Tone Integumentary Skin Exam: Warm, Dry Skin Remarks min swelling Right Forearm, faint redness , ulceration w scab formation , no drainage , slight warmth Neurologic Neuro Exam: Alert, Awake, Oriented, Speech Clear, Moving All Extremities Psychiatric Psych Exam: Appropriate Responses VTE Prophylaxis VTE Prophylaxis Meds: Heparin Hospital Course These are the diagnoses that were used to treat this patient while in the hospital and follow his plan of care. Right upper extremity cellulitis, FAILED outpatient therapy, improving Right upper extremity laceration/wound, improving Pruritus secondary to the above, better with current treatment History of coronary disease, COPD, hypothyroidism Management management of these diagnoses included po ceftin/doxy x 5 more day Keep the right forearm elevated. Frankryl/triamcinolone cream prn for itching. analgesic prn cont statin ASA Pepcid Continue home medications DVT prophylaxis Patient had vital signs taken every 4 hours which were stable and no fever noted. Labs were drawn throughout stay and on 08/12/16 potassium was 4 chloride was 108, hemoglobin was 13.3 and WBC count 4.8. Patient had no consulting physicians he did for his plan of care. Medications were reconciled, patient responded well to treatment plan of antibiotics, pain meds, and elevation of the right forearm. medically stable for d/c after being in assist on 08/15/16 d/c home today , discharge planning was discussed with patient in detail. see MRS Discussed with patient in detail Pt Condition on Discharge: Stable Discharge Disposition: Discharge Home Discharge Instructions DIET: Follow Instructions for: Heart Healthy Diet Fluid Restrictions: none Activities you can perform: Regular-No Restrictions Ronit Hendricks Aug 15, 2016 18:21 Ronit Hendricks Aug 15, 2016 18:21
== END 2016-08-15 16:12 | disposition home or self-care (01) | DRG 603 ==
LOC: PHED 09:56 → PHEDA 11:31 → PHEDH 15:23 → PH3A 18:29 → OBSVTOIN 08-11 15:15
PROVIDERS: ADMIT Specialist; ATTEND Specialist
DX: L03.113 Cellulitis of right upper limb (principal); J44.9 Chronic obstructive pulmonary disease, unspecified; I10 Essential (primary) hypertension; E03.9 Hypothyroidism, unspecified; S41.111A Laceration without foreign body of right upper arm, initial encounter; E78.5 Hyperlipidemia, unspecified; R21 Rash and other nonspecific skin eruption; E78.00 Pure hypercholesterolemia, unspecified; I25.10 Atherosclerotic heart disease of native coronary artery without angina pectoris; E66.3 Overweight; Z68.28 Body mass index [BMI] 28.0-28.9, adult; Z53.29 Procedure and treatment not carried out because of patient's decision for other reasons; Z95.1 Presence of aortocoronary bypass graft; Z91.041 Radiographic dye allergy status; W22.8XXA Striking against or struck by other objects, initial encounter
CPT/HCPCS: 76937; 80048; 80053; 85025; 85610; 85730; 87040; 87081; 90471; 90714; 96365; J1644; J3370; J7050

== ENCOUNTER 2016-08-17 14:40 | Observation (INO) | payer MEDICARE, OTHER ==
[~2016-08-17 14:40] MED LIST changes: +ASPI81CH37 CHEW; +CEFT500T3 PO; +DOXY100T PO; -HYDR-3580 PO; -IBUP-232 PO; +METO25TA3 PO; +SIMV5TAB3 PO
[2016-08-17 15:00] VITALS: BP 167/85; PULSE 60; RESP 16; TEMP 96; O2SAT 94
[2016-08-17] MEDS ORDERED: VANCOMYCIN INJ 1,251 MG in SODIUM CHLORID 0.9% 500 ML INJ 500 ML IV ONE (16:45)
--- NOTE | 2016-08-17 17:04 | HHI.HP ---
HPI Service [facility] Primary Care Physician Non-Staff Admission Diagnosis Diagnoses: (Ronit Hendricks) Travel History International Travel<30 Days: No Contact w/Intl Traveler <30 Da: No Traveled to Known Affected Are: No (Ronit Hendricks) Sepsis Criteria Multiple Organ Dysfunction Syn: Evidence -2 organs failing (Ronit Hendricks) Past Family Social History Allergies: Coded Allergies: Contrast Media (Verified Allergy, Unknown, stings , 08/10/16) Physical Exam Vital Signs Vital Signs Date Time Temp Pulse Resp B/P Pulse Ox O2 Delivery O2 Flow Rate FiO2 08/17/16 15:00 96.0 60 16 167/85 94 (Ronit Hendricks) Assessment and Plan Assessment and Plan dictated, [id number] (Ronit Hendricks) Assessment and Plan pt is seen & examined d/w PT d/w ronit severe itching / developing worsen rash w superimposed cellulitis see orders see H&P (Lesly Solorio MD) Ronit Hendircks Aug 17, 2016 17:04 Lesly Solorio MD Aug 17, 2016 19:21
[2016-08-17] MEDS: diphenhydrAMINE HCL 25 MG CAP PO SCH ×2 (17:28→22:00)
[2016-08-17] MEDS: ENOXAPARIN SODIUM 40 MG/0.4 ML SYRINGE SQ SCH (17:28)
[2016-08-17] MEDS: FAMOTIDINE 20 MG TAB PO SCH (19:46)
[2016-08-17] MEDS: diphenhydrAMINE HCL 50 MG CAP PO PRN (19:46)
[2016-08-17 19:57] LABS: AUTOMATED NEUTROPHIL # 4.5 TH/MM3 (1.8-7.7); BASOPHIL # 0.1 TH/MM3 (0-0.2); BASOPHIL % 0.8 % (0.0-2.0); EOSINOPHIL # 0.4 TH/MM3 (0-0.4); EOSINOPHIL % 6.3 % (0.0-4.0); HEMATOCRIT 42.8 % (39.0-51.0); LYMPH % 20.8 % (9.0-44.0); LYMPHOCYTE # 1.5 TH/MM3 (1.0-4.8); MEAN CELL VOLUME 89.4 FL (80.0-100.0); MEAN CORPUSCULAR HEMOGLOBIN 30.3 PG (27.0-34.0); MEAN CORPUSCULAR HGB CONC 33.9 % (32.0-36.0); MONO % 9.6 % (0.0-8.0); NEUT % 62.5 % (16.0-70.0); PLATELET COUNT 205 TH/MM3 (150-450); RED BLOOD COUNT 4.79 MIL/MM3 (4.50-5.90); RED CELL DISTRIBUTION WIDTH 14.9 % (11.6-17.2); WHITE BLOOD COUNT 7.1 TH/MM3 (4.0-11.0)
[2016-08-17 20:00] VITALS: BP 149/73; PULSE 52; RESP 19; TEMP 96.4; O2SAT 99
[2016-08-17 20:00] LABS: HEMO FLAGS DIFF FINAL
[2016-08-17 20:01] LABS: BICARBONATE 25.6 MEQ/L (21.0-32.0)
[2016-08-17] MEDS: predniSONE 10 MG TAB PO SCH (20:09)
[2016-08-17 20:25] LABS: WESTERGREN SEDIMENTATION RATE 2 mm/hr (0-20)
[2016-08-17] MEDS ORDERED: FLUOCINONIDE 0.05% TOPICAL PRN (21:00)
[2016-08-17] MEDS: BETAMETHASONE DIPROPIONATE 0.05% CREAM 15 GM TOPICAL PRN (23:54)
[2016-08-18] VITALS: BP 139/69; PULSE 64; RESP 19; TEMP 97; O2SAT 98
[2016-08-18] MEDS: diphenhydrAMINE HCL 50 MG CAP PO PRN (01:50)
[2016-08-18 04:00] VITALS: BP 128/68; PULSE 71; RESP 18; TEMP 96.7; O2SAT 95
[2016-08-18] MEDS: diphenhydrAMINE HCL 25 MG CAP PO SCH (05:58)
[2016-08-18] MEDS: BETAMETHASONE DIPROPIONATE 0.05% CREAM 15 GM TOPICAL PRN (05:58)
[2016-08-18] MEDS ORDERED: Vancomycin Consult Pharmacy 1 EA OTHER SCH (08:30)
[2016-08-18] MEDS: predniSONE 10 MG TAB PO SCH (08:42)
[2016-08-18] MEDS: PRAVASTATIN SOD 20 MG TAB PO SCH (08:43)
[2016-08-18] MEDS: ASPIRIN 81 MG CHEW TAB CHEW SCH (08:43)
[2016-08-18] MEDS: FAMOTIDINE 20 MG TAB PO SCH ×2 (08:43→20:06)
[2016-08-18] MEDS: METOPROLOL TARTRATE 25 MG TAB PO SCH (08:43)
[2016-08-18 08:47] VITALS: BP 137/67; PULSE 69; RESP 18; TEMP 96.3; O2SAT 94
[2016-08-18] MEDS ORDERED: NON-FORMULARY DRUG (Simvastatin 10 MG) PO SCH (09:00)
--- NOTE | 2016-08-18 09:50 | HHI.PR ---
Subjective Subjective Remarks itching right > left arm some itching right flank, no erythema noted no fever no cp no sob loose stool x 1 states he had "watery diarrhea" at home x 3 days at [facility] Review of Systems Constitutional Constitutional Remarks 12 point ROS completed, negative except as noted above Vitals/Results Intake & Output 08/17/16 08/17/16 08/18/16 15:00 23:00 07:00 Intake Total 480 ml 120 ml Balance 480 ml 120 ml Intake Oral 480 ml 120 ml # Voids 3 2 Vital Signs Vital Signs Date Time Temp Pulse Resp B/P Pulse Ox O2 Delivery O2 Flow Rate FiO2 08/18/16 08:47 96.3 69 18 137/67 94 08/18/16 04:00 96.7 71 18 128/68 95 08/18/16 00:00 97.0 64 19 139/69 98 08/17/16 20:00 96.4 52 19 149/73 99 08/17/16 15:00 96.0 60 16 167/85 94 CBC/BMP: 08/17/164 08/17/161913 Lab Results Laboratory Tests Test 08/17/16 19:14 White Blood Count 7.1 TH/MM3 Red Blood Count 4.79 MIL/MM3 Hemoglobin 14.5 GM/DL Hematocrit 42.8 % Mean Corpuscular Volume 89.4 FL Mean Corpuscular Hemoglobin 30.3 PG Mean Corpuscular Hemoglobin 33.9 % Concent Red Cell Distribution Width 14.9 % Platelet Count 205 TH/MM3 Mean Platelet Volume 7.9 FL Neutrophils (%) (Auto) 62.5 % Lymphocytes (%) (Auto) 20.8 % Monocytes (%) (Auto) 9.6 % Eosinophils (%) (Auto) 6.3 % Basophils (%) (Auto) 0.8 % Neutrophils # (Auto) 4.5 TH/MM3 Lymphocytes # (Auto) 1.5 TH/MM3 Monocytes # (Auto) 0.7 TH/MM3 Eosinophils # (Auto) 0.4 TH/MM3 Basophils # (Auto) 0.1 TH/MM3 CBC Comment DIFF FINAL Differential Comment Erythrocyte Sedimentation Rate 2 mm/hr Sodium Level 138 MEQ/L Potassium Level 4.0 MEQ/L Chloride Level 105 MEQ/L Carbon Dioxide Level 25.6 MEQ/L Anion Gap 7 MEQ/L Blood Urea Nitrogen 9 MG/DL Creatinine 0.93 MG/DL Estimat Glomerular Filtration 79 ML/MIN Rate Random Glucose 93 MG/DL Calcium Level 8.7 MG/DL C-Reactive Protein 0.61 MG/DL Physical Exam General General Appearance: Well Developed, Well Nourished, No Acute Distress, Comfortable Eyes Eye Exam: Pupils Equal, Pupils Reactive Ears & Nose Ears & Nose Exam: Nasal Mucosa [place] Throat Throat Exam: Oral Mucosa [place] & Moist Neck Neck Exam: Neck Supple, Trachea Midline Pulmonary Resp Exam: Clear Bilaterally Cardiology CV Exam: Regular, Good Perfusion Gastrointestinal/Abdomen GI Exam: Soft, Non-Tender, Bowel Sounds Present, Non-Distended Musculoskeletal MS Exam: Joints Intact Integumentary Skin Exam: Warm, Dry Skin Remarks erythema right forearm > left forearm scab right FA Extremeties Extremities Exam: No Edema, Pedal Pulses Palpable Neurologic Neuro Exam: Alert, Awake, Oriented, Speech Clear, Moving All Extremities, No Focal Deficits Psychiatric Psych Exam: Appropriate Responses VTE Prophylaxis VTE Prophylaxis Meds: Lovenox Assessment/Plan Problem List: (1) Cellulitis (2) HTN (hypertension) (3) Failure of outpatient treatment Assessment/Plan continue with empiric abx pharmacy consult for vanco ID consult pending Change to Vistaril, DC Benadryl continue PO steroids BP control, stable Lovenox for DVT prophylaxis diarrhea will check stool for cdiff will wait for ID input will need derm f/u as OP for further work up D/W RN D/W Dr. Solorio D/W pt and This patient was seen by myself and Dr. Solorio, this note is written on his behalf Problem Qualifiers (1) Cellulitis: Qualified Code: L03.113 - Cellulitis of right upper extremity (2) HTN (hypertension): Qualified Code: I10 - Essential hypertension Katie Grijalva Aug 18, 2016 09:50
[2016-08-18 12:03] VITALS: BP 129/60; PULSE 52; RESP 18; TEMP 97.3; O2SAT 94
[2016-08-18] MEDS: hydrOXYzine PAMOATE 25 MG CAP PO PRN ×2 (12:43→18:30)
--- NOTE | 2016-08-18 14:33 | PD.CONS ---
History of Present Illness Service Infectious disease Consult Requested By Dr Libby Solorio Reason for Consult Evaluate patient with cellulitis Primary Care Physician Non-Staff Diagnoses: History of Present Illness Patient seen and examined. Records reviewed. Patient is a 76-year-old male started having problem with his right upper extremity around the first week of August when he hit the doorknob with his arm. He sustained an abrasion and soon after that he started noticing redness in his right forearm. He went to an urgent care center, and he was given a prescription for doxycycline as well as Bactroban ointment. According to the patient he was not improving much so he saw his primary care physician, and he was given a prescription for clindamycin. He still was not improving so he presented to [facility], and he was admitted for further management. There has been no fever or chills. Patient was put on IV vancomycin and IV clindamycin. While in the hospital he was complaining of some itching mostly in his right upper extremity. He showed clinical improvement, and he was discharge August 15 on Ceftin and doxycycline. According to the patient at home he started noticing some skin break out on his left forearm as well as on his face. He also noted some more redness in his right upper extremity. He went to see his primary care physician for follow-up and he was told to go back to the hospital for further evaluation and treatment. He denies any fever or chills or sweats. Infectious disease consultations be requested to evaluate the patient. Review of Systems Constitutional: DENIES: Fever, Chills, Night Sweats Eyes: DENIES: Eye pain Ears, nose, mouth, throat: DENIES: Nasal discharge, Oral lesions, Throat pain, Ear Pain, Sinus Pain, Toothache Respiratory: DENIES: Cough, Shortness of breath Cardiovascular: DENIES: Chest pain, Palpitations, Syncope Gastrointestinal: DENIES: Abdominal pain, Diarrhea, Nausea, Vomiting, Difficulty Swallowing Genitourinary: DENIES: Dysuria Musculoskeletal: DENIES: Joint pain, Joint Swelling Integumentary: COMPLAINS OF: Rash Neurologic: DENIES: Headache Psychiatric: DENIES: Confusion, Hallucinations Past Family Social History Allergies: Coded Allergies: Contrast Media (Verified Allergy, Unknown, stings , 08/10/16) Past Medical History Hypothyroidism Coronary disease Hyperlipidemia Overweight Hypertension COPD Past Surgical History 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 Tonsillectomy Appendectomy Active Ordered Medications Aspirin Steroid cream Lovenox Pepcid Vistaril Lopressor Pravachol Prednisone Vancomycin Social History No smoking Occ ETOH use No illicit drug use Physical Exam Vital Signs Vital Signs Date Time Temp Pulse Resp B/P Pulse Ox O2 Delivery O2 Flow Rate FiO2 08/18/16 12:03 97.3 52 18 129/60 94 08/18/16 08:47 96.3 69 18 137/67 94 08/18/16 04:00 96.7 71 18 128/68 95 08/18/16 00:00 97.0 64 19 139/69 98 08/17/16 20:00 96.4 52 19 149/73 99 08/17/16 15:00 96.0 60 16 167/85 94 Physical Exam GENERAL: This is a well-nourished, well-developed male, awake and alert, in no apparent distress. SKIN: Has dry erythematous rash, in L forearm, R chest, R upper abdomen. Cool and dry. HEAD: Atraumatic. Normocephalic. No temporal or scalp tenderness. EYES: Reedy conjunctivae. Pupils equal round and reactive. Extraocular motions intact. No scleral icterus. No injection or drainage. ENT: Nose without bleeding, or purulent drainage. Moist oral mucosa, no lesions noted. Throat without erythema, or exudate. Uvula midline. Airway patent. Has what looks like dermatitis on his cheeks and sides of his nose NECK: Trachea midline. No JVD or lymphadenopathy. Supple, nontender, no meningeal signs. CARDIOVASCULAR: Regular rate and rhythm without murmurs, gallops, or rubs. RESPIRATORY: Clear to auscultation. Breath sounds equal bilaterally. No wheezes , rales, or rhonchi. GASTROINTESTINAL: Abdomen soft, non-tender, nondistended. No hepato-splenomegaly , or palpable masses. No guarding. MUSCULOSKELETAL: Lower Extremities without clubbing, cyanosis, or edema. No joint tenderness, effusion, or edema noted. No calf tenderness. . RUE: there is a healing area of abrasion, and he has a large drying erytjematous patch on same area of his forearm. RUE larger compared to LUE with mild dependent redness in whole extremity. NEUROLOGICAL: Awake and alert. Cranial nerves II through XII intact. Motor and sensory grossly within normal limits. Normal speech. PSYCH: Normal affect, calm and cooperative LINE: PIV with no evidence of infection Laboratory Laboratory Tests Test 08/17/16 19:14 White Blood Count 7.1 Red Blood Count 4.79 Hemoglobin 14.5 Hematocrit 42.8 Mean Corpuscular Volume 89.4 Mean Corpuscular Hemoglobin 30.3 Mean Corpuscular Hemoglobin 33.9 Concent Red Cell Distribution Width 14.9 Platelet Count 205 Mean Platelet Volume 7.9 Neutrophils (%) (Auto) 62.5 Lymphocytes (%) (Auto) 20.8 Monocytes (%) (Auto) 9.6 Eosinophils (%) (Auto) 6.3 Basophils (%) (Auto) 0.8 Neutrophils # (Auto) 4.5 Lymphocytes # (Auto) 1.5 Monocytes # (Auto) 0.7 Eosinophils # (Auto) 0.4 Basophils # (Auto) 0.1 CBC Comment DIFF FINAL Differential Comment Erythrocyte Sedimentation Rate 2 Sodium Level 138 Potassium Level 4.0 Chloride Level 105 Carbon Dioxide Level 25.6 Anion Gap 7 Blood Urea Nitrogen 9 Creatinine 0.93 Estimat Glomerular Filtration 79 Rate Random Glucose 93 Calcium Level 8.7 C-Reactive Protein 0.61 Result Diagram: 08/17/16191308/17/161913 Assessment and Plan Assessment and Plan IMPRESSION Cellulitis RUE, looks overall better - looks redder due to rash, ?eczematous on his forearm - ?has drug eruption adding to the redness, ?due to Ceftin Facial rash, ?seborhheic dermatitis RECOMMENDATION Continue prednisone Change Vancomycin to Clindamycin Elevate RUE If he improves with Clinda, will use this to complete his Rx Monitor progress I will follow along with you Thank you for this consultation Discussed Condition With Explained plan to the patient Shivani Milian MD Aug 18, 2016 14:33
[2016-08-18] MEDS ORDERED: VANCOMYCIN 1,500 MG/NS 500 ML IV SCH ×2 (15:00)
[2016-08-18 16:34] VITALS: BP 118/56; PULSE 58; RESP 18; TEMP 96.6; O2SAT 94
[2016-08-18] MEDS: ENOXAPARIN SODIUM 40 MG/0.4 ML SYRINGE SQ SCH (16:49)
[2016-08-18] MEDS: LACTOBACILLUS ACIDOPHILUS TAB PO SCH (16:50)
[2016-08-18 20:00] VITALS: BP 129/61; PULSE 56; RESP 18; TEMP 96.5; O2SAT 96
[2016-08-18] MEDS: CLINDAMYCIN INJ 600 MG in SODIUM CHLORIDE 0.9% INJ 100 ML IV SCH (20:06)
[2016-08-19] VITALS (7 sets, daily range): BP systolic 121–157; BP diastolic 56–68; PULSE 45–73; RESP 18–20; TEMP 95.9–97.5; O2SAT 94–97
[2016-08-19] MEDS: hydrOXYzine PAMOATE 25 MG CAP PO PRN ×3 (04:14→17:46)
[2016-08-19] MEDS: CLINDAMYCIN INJ 600 MG in SODIUM CHLORIDE 0.9% INJ 100 ML IV SCH ×3 (04:16→20:28)
[2016-08-19] MEDS: FAMOTIDINE 20 MG TAB PO SCH ×2 (09:05→20:28)
[2016-08-19] MEDS: LACTOBACILLUS ACIDOPHILUS TAB PO SCH ×3 (09:05→17:46)
[2016-08-19] MEDS: PRAVASTATIN SOD 20 MG TAB PO SCH (09:05)
[2016-08-19] MEDS: METOPROLOL TARTRATE 25 MG TAB PO SCH (09:05)
[2016-08-19] MEDS: predniSONE 10 MG TAB PO SCH (09:05)
[2016-08-19] MEDS: ASPIRIN 81 MG CHEW TAB CHEW SCH (09:06)
--- NOTE | 2016-08-19 09:21 | HHI.PR ---
Subjective Subjective Remarks itching and redness improved with Vistaril no fever no diarrhea x 2 days no cp no sob wants to know what caused rash no family at bsd Review of Systems Constitutional Constitutional Remarks 12 point ROS completed, negative except as noted above Vitals/Results Intake & Output 08/18/16 08/18/16 08/19/16 15:00 23:00 07:00 Intake Total 480 ml 240 ml Balance 480 ml 240 ml Intake Oral 480 ml 240 ml # Voids 6 2 Vital Signs Vital Signs Date Time Temp Pulse Resp B/P Pulse Ox O2 Delivery O2 Flow Rate FiO2 08/19/16 09:08 59 08/19/16 04:00 96.8 73 18 157/68 94 08/19/16 00:00 96.0 58 19 130/60 97 08/18/16 20:00 96.5 56 18 129/61 96 08/18/16 16:34 96.6 58 18 118/56 94 08/18/16 12:03 97.3 52 18 129/60 94 CBC/BMP: 08/17/16191308/17/161913 Physical Exam General General Appearance: Well Developed, Well Nourished, No Acute Distress, Comfortable Eyes Eye Exam: Pupils Equal, Pupils Reactive Ears & Nose Ears & Nose Exam: Nasal Mucosa [place] Throat Throat Exam: Oral Mucosa [place] & Moist Neck Neck Exam: Neck Supple, Trachea Midline Pulmonary Resp Exam: Clear Bilaterally Cardiology CV Exam: Regular, Good Perfusion Gastrointestinal/Abdomen GI Exam: Soft, Non-Tender, Bowel Sounds Present, Non-Distended Musculoskeletal MS Exam: Joints Intact Integumentary Skin Exam: Warm, Dry Skin Remarks erythema improved right forearm > left forearm scab right FA Extremeties Extremities Exam: No Edema, Pedal Pulses Palpable Neurologic Neuro Exam: Alert, Awake, Oriented, Speech Clear, Moving All Extremities, No Focal Deficits Psychiatric Psych Exam: Appropriate Responses VTE Prophylaxis VTE Prophylaxis Meds: Lovenox Assessment/Plan Problem List: (1) Cellulitis (2) HTN (hypertension) (3) Failure of outpatient treatment Assessment/Plan continue with empiric abx ID input appreciated, changed abx to Clinda. Pt. appears to be improving per ID etiology unclear ? drug eruption vs eczema Continue Vistaril continue PO steroids BP control, stable Lovenox for DVT prophylaxis diarrhea-resolved now stool for cdiff if diarrhea develops poss dc today on Clinda overall improving will need f/u with derm as OP D/W RN D/W Dr. Solorio D/W pt This patient was seen by myself and Dr. Solorio, this note is written on his behalf Problem Qualifiers (1) Cellulitis: Qualified Code: L03.113 - Cellulitis of right upper extremity (2) HTN (hypertension): Qualified Code: I10 - Essential hypertension Katie Grijalva Aug 19, 2016 09:21
[2016-08-19] MEDS: ENOXAPARIN SODIUM 40 MG/0.4 ML SYRINGE SQ SCH (17:46)
[2016-08-20] VITALS: BP 128/63; PULSE 51; RESP 18; TEMP 97.5; O2SAT 97
[2016-08-20 04:00] VITALS: BP 117/56; PULSE 52; RESP 20; TEMP 97.5; O2SAT 94
[2016-08-20] MEDS: CLINDAMYCIN INJ 600 MG in SODIUM CHLORIDE 0.9% INJ 100 ML IV SCH (04:02)
[2016-08-20] MEDS: hydrOXYzine PAMOATE 25 MG CAP PO PRN (04:02)
[2016-08-20] MEDS: predniSONE 10 MG TAB PO SCH (08:33)
[2016-08-20] MEDS: LACTOBACILLUS ACIDOPHILUS TAB PO SCH (08:33)
[2016-08-20] MEDS: ASPIRIN 81 MG CHEW TAB CHEW SCH (08:33)
[2016-08-20] MEDS: METOPROLOL TARTRATE 25 MG TAB PO SCH (08:33)
[2016-08-20] MEDS: FAMOTIDINE 20 MG TAB PO SCH (08:33)
[2016-08-20] MEDS: PRAVASTATIN SOD 20 MG TAB PO SCH (08:33)
--- NOTE | 2016-08-20 08:36 | MH ---
cc: ROSIE ARREDONDO MD DATE OF ADMISSION: 08/17/2016 DATE OF : 1940 REASON FOR ADMISSION Worsening of cellulitis in the right forearm. TRAVEL: Travel in the last 30 days none. HISTORY OF PRESENT ILLNESS This is a 76-year-old male who was in his usual state of health up until about 2 weeks ago. The patient was at the [employer] shop and going out the door, scraped his right forearm on part of the lock/latch. The patient had a open abrasion which bled, he went home cleaned it up his put some medication on it and a band-aid on it. Approximately 2-3 days later the patient noticed redness and increased irritation on and around the site. He went to see his regular PCP who put him on p.o. doxycycline. The patient went home approximately 3-4 days later noted that the and the forearm continued to be red and nonhealing. The patient went back to the [facility] and was then placed on clindamycin both sets of antibiotics assisted in the healing of this abrasion but did not completely heal this in his antibiotics were completed. The patient continued to have increased cellulitis in the arm and itching over the entire site increased redness and edema. Currently the wound is open to air. No acute bleeding noted but does have a no unhealed his shoulder pain with his unhealed the patient denies any fevers, chills. Denies any shortness of breath. No chest pain. No nausea or vomiting and diarrhea or constipation. The patient did note some GI cramping and some decreased appetite while on antibiotics. He has noted approximately a 6-pound weight loss in the past 2 weeks due to not eating properly in his decreased appetite is in the room and also adds to the history that the patient has had continuous itching throughout since the injury occurred at one point during the night when he was at [employer], the patient accidentally was scratching engaging and toward the scabs off the wound and was scratching into the wound bed. Currently the patient has swelling and cellulitis over the entire anterior forearm of food and a cubital in the into the upper right arm. He is currently alert, oriented and a fair historian. The patient was discharged from [employer] approximately 2 days ago but has continued to failed outpatient therapy and is back now for reevaluation with increased cellulitis. PAST MEDICAL HISTORY 1. Hypertension, 2. hyperlipidemia, 3. coronary artery disease, 4. COPD, 5. coronary artery disease 6. carotid artery disease 7. Fatty liver 8. hyperglycemia 9. was noted to have diabetes. Most of this information and history was gathered from the patient. The rest of this is being gathered from his record. PAST SURGICAL HISTORY 1. Coronary artery bypass graft in 1999 2. Appendectomy 3. tonsillectomy 4. cataracts removed ALLERGIES IODINE CONTRAST DYE MEDICATIONS According to the record 1. Multivitamins. 2. Aspirin. The patient has been on. 3. Doxycycline. 4. Clindamycin. 5. He also takes metoprolol. 6. Symbicort inhaler. 7. Ventolin visual these are per the record medications will be reconciled. SOCIAL HISTORY The patient currently lives with a significant other. He was a long-term tobacco user but quit 17 years ago. He does admit to drinking beer two to three a day approximately 4 days a week. No illicit drugs. FAMILY HISTORY Hypertension, heart disease, cancer. PHYSICAL EXAMINATION: Vital signs: Temperature is 96, pulse 60, respirations 16, blood pressure 167/85, O2 sat 94 on room air. IN GENERAL: Well-nourished white male looks to be his stated age resting in the chair. He is alert, oriented a fairly cooperative a fairly good historian. SKIN: skin is warm and dry, cellulitis and unhealed abrasions on his right forearm. Abrasion is approximately 2 cm wide, approximately the size of a quarter, two to three cm wide very minimal depth noted. No foul-smelling drainage, dry at this point. HEAD, EYES, EARS, NOSE, AND THROAT: Atraumatic, normocephalic. Pupils equal, round, reactive to light and accommodation. no scleral icterus. [place] moist mucous membranes. NECK: Neck is supple. CARDIOVASCULAR SYSTEM: Heart sounds S1-S2 regular rate and rhythm. Systolic murmur noted at the lower left sternal border. No edema and pulses are intact. PULMONARY: Essentially clear anteriorly and posteriorly with no wheezes, rales or rhonchi. He does have some diminished sounds in his bases bilateral. ABDOMEN: The abdomen is flat, soft, nontender, active bowel sounds in all four quads. MUSCULOSKELETAL: Moves his extremities with purpose. 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 He does have some guarding to the right arm secondary to his nonhealing wound and cellulitis. He is complaining of almost constant uricaria. NEUROLOGICALLY: He is alert, oriented, answers questions with short answers. PSYCHIATRIC: Appropriate mood and affect, mild anxiety noted to current rehospitalization. DIAGNOSTIC DATA No labs. Labs are pending. ASSESSMENT/PLAN 1. Cellulitis right forearm. Nonhealing wound, failed outpatient treatment. 2. Hypertension. 3. History of coronary artery disease 4. hyperlipidemia 5. COPD. 6. Ethyl alcohol usage. PLAN: Our plan is to admit initially for observation. We will reconcile his home medications, place him on vancomycin and give him a heart healthy diet. Deep venous thrombosis prophylaxis with Lovenox, peptic ulcer disease prophylaxis with Pepcid. Consult ID for their expert opinion. We will monitor his vital signs and labs and treat any abnormals I have placed him on Benadryl as a scheduled dose due to the constant scratching and clawing of his arm. He will have pain management. He is full code, full aggressive care and we will follow. Thank you very much. DICTATED BY: CHRISTY Cadena MD JAVI Sparks/timur /4:53 PM /8:36 AM
[2016-08-20] MEDS ORDERED: HYDR1CAP30 PO ×2 (10:57→11:58)
[2016-08-20] MEDS ORDERED: LACT PO ×2 (10:57→11:58)
[2016-08-20] MEDS ORDERED: CLIN1CAP6 PO ×2 (10:57→11:31)
[2016-08-20] MEDS ORDERED: PRED10 PO ×2 (10:57→11:58)
--- NOTE | 2016-08-20 10:57 | HHI.DCPOC ---
Discharge Care Plan Diagnosis: (1) Cellulitis (2) HTN (hypertension) (3) Failure of outpatient treatment Your Health Problems Are: Skin Breakdown Inflammation Swelling Goals to Promote Your Health * To prevent worsening of your condition and complications * To maintain your health at the optimal level Directions to Meet Your Goals Take your medications as prescribed Follow your dietary instruction Follow activity as directed Keep your appointments as scheduled Take your immunizations and boosters as scheduled If your symptoms worsen call your PCP, if no PCP go to Urgent Care Center or Emergency Room Smoking is Dangerous to Your Health. Avoid second hand smoke Call the 24-hour hour crisis hotline for domestic abuse at Katie GrijalvaP Aug 20, 2016 10:57
--- NOTE | 2016-08-20 10:58 | HHI.PR ---
Subjective Subjective Remarks itching and redness markedly improved no fever no diarrhea no cp no sob anxious to go home at bsd Review of Systems Constitutional Constitutional Remarks 12 point ROS completed, negative except as noted above Vitals/Results Intake & Output 08/19/16 08/19/16 08/20/16 15:00 23:00 07:00 Intake Total 120 ml 480 ml Output Total 2 ml Balance 120 ml 480 ml -2 ml Intake Oral 120 ml 480 ml Output Urine Total 2 ml # Voids 3 1 # Bowel Movements 0 1 1 Vital Signs Vital Signs Date Time Temp Pulse Resp B/P Pulse Ox O2 Delivery O2 Flow Rate FiO2 08/20/16 04:00 97.5 52 20 117/56 94 08/20/16 00:00 97.5 51 18 128/63 97 08/19/16 20:00 97.0 59 18 140/67 97 08/19/16 15:30 95.9 45 20 129/67 96 08/19/16 11:30 96.3 50 20 129/60 95 CBC/BMP: 08/17/16191308/17/161913 Physical Exam General General Appearance: Well Developed, Well Nourished, No Acute Distress, Comfortable Eyes Eye Exam: Pupils Equal, Pupils Reactive Ears & Nose Ears & Nose Exam: Nasal Mucosa [place] Throat Throat Exam: Oral Mucosa [place] & Moist Neck Neck Exam: Neck Supple, Trachea Midline Pulmonary Resp Exam: Clear Bilaterally Cardiology CV Exam: Regular, Good Perfusion Gastrointestinal/Abdomen GI Exam: Soft, Non-Tender, Bowel Sounds Present, Non-Distended Musculoskeletal MS Exam: Joints Intact Integumentary Skin Exam: Warm, Dry Skin Remarks erythema improved right forearm > left forearm scab right FA Extremeties Extremities Exam: No Edema, Pedal Pulses Palpable Neurologic Neuro Exam: Alert, Awake, Oriented, Speech Clear, Moving All Extremities, No Focal Deficits Psychiatric Psych Exam: Appropriate Responses VTE Prophylaxis VTE Prophylaxis Meds: Lovenox Assessment/Plan Problem List: (1) Cellulitis (2) HTN (hypertension) (3) Failure of outpatient treatment Assessment/Plan continue with empiric abx ID input appreciated, changed abx to Clinda. Pt. appears to be improving per ID etiology unclear ? drug eruption vs eczema Continue Vistaril continue PO steroids BP control, stable Lovenox for DVT prophylaxis diarrhea-resolved now stool for cdiff if diarrhea develops discharge today d/w ID, continue abx x 10 days F/U PCP Diet -heart healthy Activity- as tolerated D/W RN D/W Dr. Solorio D/W pt and This patient was seen by myself and Dr. Solorio, this note is written on his behalf Problem Qualifiers (1) Cellulitis: Qualified Code: L03.113 - Cellulitis of right upper extremity (2) HTN (hypertension): Qualified Code: I10 - Essential hypertension Katie Grijalva Aug 20, 2016 10:58
--- NOTE | 2016-08-20 11:33 | HHI.DS ---
Discharge Summary Admission Date Aug 17, 2016 at 14:40 Discharge Date: Aug 20, 2016 Admitting Diagnosis (1) Cellulitis (2) Failure of outpatient treatment (3) HTN (hypertension) CBC/BMP: 08/17/16191308/17/161913 Significant Findings Laboratory Tests Test 08/17/16 19:14 Monocytes (%) (Auto) 9.6 % (0.0-8.0) Eosinophils (%) (Auto) 6.3 % (0.0-4.0) Estimat Glomerular Filtration 79 ML/MIN (>89) Rate C-Reactive Protein 0.61 MG/DL (0.00-0.30) Hospital Course This is a 76-year-old male who was in his usual state of health up until about 2 weeks ago. The patient was at the [employer] shop and going out the door, scraped his right forearm on part of the lock/latch. The patient had a open abrasion which bled, he went home cleaned it up his put some medication on it and a band-aid on it. Approximately 2-3 days later the patient noticed redness and increased irritation on and around the site. He went to see his regular PCP who put him on p.o. doxycycline. The patient went home approximately 3-4 days later noted that the and the forearm continued to be red and nonhealing. The patient went back to the [facility] and was then placed on clindamycin both sets of antibiotics assisted in the healing of this abrasion but did not completely heal this in his antibiotics were completed. The patient continued to have increased cellulitis in the arm and itching over the entire site increased redness and edema. The wound was open to air. The patient did note some GI cramping and some decreased appetite while on antibiotics. He has noted approximately a 6-pound weight loss in the past 2 weeks due to not eating properly in his decreased appetite. Pt. admitted for: (1) Cellulitis (2) HTN (hypertension) (3) Failure of outpatient treatment During the course of the hospitalization, the following took place: Patient continued with empiric abx-initially put on vancomycin Infectious disease consulted ID input appreciated, changed abx to Clinda. Patient was put on oral steroids per ID etiology unclear ? drug eruption vs eczema Put on Vistaril to help with pruritus, this also helped with patient's anxiety Patient was continued on home meds Lovenox for DVT prophylaxis He endorses history of diarrhea, did not have any nuchal stools while he was in the hospital. C. difficile was ordered in the event patient developed diarrhea. He was put on probiotic Patient's condition improved, redness and pruritus improved. He had no fever, no leukocytosis Patient responded well to clindamycin. Case was discussed with infectious disease, cleared for discharge and to continue antibiotics for 10 days. Patient was discharged home in stable condition Pt Condition on Discharge: Stable Discharge Disposition: Discharge Home Discharge Instructions DIET: Follow Instructions for: Heart Healthy Diet Activities you can perform: Weight Bearing as Siddhartha Follow up Referrals: PCP Follow-up New Medications: Clindamycin (Clindamycin) 300 Mg Cap 300 MG PO TID Infection #30 Ref 0 CAP Hydroxyzine Pamoate (Hydroxyzine Pamoate) 25 Mg Cap 25 MG PO Q8HR PRN ITCHING/ANXIETY #21 Ref 0 CAP Lactobacillus Acidophilus (Acidophilus/l-Sporogenes) 1 Tab Tab 1 TAB PO TID Nutritional Supplement #21 Ref 0 TAB Prednisone (Prednisone) 10 Mg Tab 20 MG PO DAILY Inflammation #5 Ref 0 TAB Continued Medications: Aspirin (Aspirin Low Dose) 81 Mg Chew 81 MG CHEW DAILY Ref 0 TAB Metoprolol Tartrate (Metoprolol Tartrate) 25 Mg Tab 25 MG PO DAILY #30 Ref 0 TAB Simvastatin (Simvastatin) 5 Mg Tab 10 MG PO DAILY Cholesterol Management #30 Ref 0 TAB Discontinued Medications: Cefuroxime (Ceftin) 500 Mg Tab 500 MG PO Q12HR infection #10 TAB Doxycycline Hyclate (Doxycycline Hyclate) 100 Mg Tab 100 MG PO BID cellulitis #10 TAB Katie Grijalva Aug 20, 2016 11:33
[2016-08-21] MEDS ORDERED: PHARMACY ORDERED LAB XX ONE (14:45)
== END 2016-08-20 12:41 | disposition home or self-care (01) ==
LOC: HOCA 14:40
PROVIDERS: ADMIT Specialist; ATTEND Specialist
DX: L03.113 Cellulitis of right upper limb (principal); L27.0 Generalized skin eruption due to drugs and medicaments taken internally; I10 Essential (primary) hypertension; J44.9 Chronic obstructive pulmonary disease, unspecified; I25.10 Atherosclerotic heart disease of native coronary artery without angina pectoris; E78.5 Hyperlipidemia, unspecified; E11.9 Type 2 diabetes mellitus without complications; E03.9 Hypothyroidism, unspecified; K76.0 Fatty (change of) liver, not elsewhere classified; Z95.1 Presence of aortocoronary bypass graft
CPT/HCPCS: 80048; 85025; 85652; 86140; G0378; J1650; J3370; J7040; J7512; Q0163; Q0177; 76937